=== PATIENT | female | born 1990 | race Caucasian/White ===

== ENCOUNTER 2017-04-29 18:50 | Inpatient (IN) | payer OTHER ==
[2017-04-29] MEDS ORDERED: Mag Sulf 500 ML IV SCH (19:13)
[2017-04-29 19:52] LABS: % IMMATURE GRANULYOCYTES 0.6 % (0.0-1.1); ABSOLUTE IMMATURE GRANULOCYTES 0.08 10^3/uL (0.00-0.10); ADD DIFF? NO; ADD MORPH? NO; ADD SCAN? NO; ATYPICAL LYMPHOCYTE FLAG 0 (0-99); FRAGMENT RBC FLAG 0 (0-99); HEMATOCRIT 38.2 % (38.0-47.0); HEMOGLOBIN 13.8 g/dL (12.6-16.3); LEFT SHIFT FLG 0 (0-99); LIPEMIA HEMOLYSIS FLAG 90 (0-99); MEAN CELL HEMOGLOBIN 31.2 pg (27.9-34.1); MEAN CELL HEMOGLOBIN CONCENTR. 36.1 g/dL (32.4-36.7); MEAN CELL VOLUME 86.2 fL (81.5-99.8); MEAN PLATELET VOLUME 10.6 fL (8.7-11.7); PLATELET CLUMPS FLAG 0 (0-99); PLATELET COUNT 256 10^3/uL (150-400); RED BLOOD CELL COUNT 4.43 10^6/uL (4.18-5.33); RED CELL DISTRIBUTION WIDTH 12.4 % (11.5-15.2)
[2017-04-29 20:01] LABS: ALANINE AMINOTRANSFERASE 32 IU/L (9-52); ASPARTATE AMINOTRANSFERASE 20 IU/L (14-46); BILIRUBIN,TOTAL 0.3 mg/dL (0.1-1.4); BILIRUBIN-UNCONJUGATED 0.3 mg/dL (0.0-1.1); CREATININE 0.6 mg/dL (0.6-1.0); GLOMERULAR FILTRATION RATE > 60; LACTATE DEHYDROGENASE 472 IU/L (313-618); URIC ACID 4.7 mg/dL (2.5-6.8)
[2017-04-29] MEDS ORDERED: ACETAMINOPHEN 325 MG TAB PO PRN (20:55)
--- NOTE | 2017-04-29 22:29 | PDGENHP ---
History and Physical History and Physical: Labor and Delivery History and Physical Exam DATE OF ADMISSION: 04/29/2017 HISTORY OF PRESENT ILLNESS: Heide is a 26-year-old white female G1 @ 34.3 weeks ( EDC 06/06/17 by LMP c/w 1st trimester scan) who presented this evening as a transfer from [facility] by Dr. Americo Serrano. She established OB care with Dr. Modi and has been followed by him through her . Her was uncomplicated until last week (Apr 23, 33 weeks) when she was noted to have elevated BPs at routine visit. She was admitted to hospital last week for observation, monitoring of BPs, collection of 24-hour urine protein, and administration of a course of corticosteroids. BPs decreased after Labetalol 100 mg BID PO was initiated. 24- hr urine protein was 891 mg. Patient was discharged home with close follow-up. Yesterday (Apr 28), at her follow-up clinic visit, Labetalol was discontinued. Today (Apr 29), she presented to [facility] after performing home BP monitoring and noting significantly elevated values. BPs were confirmed to be elevated at hospital (170/115). Patient denied headaches, vision changes, right-upper quadrant pain, or significant extremity swelling. She did not have significant edema or clonus on exam. HELLP labs were within normal limits. BPs were treated with IV Labetalol (20->40->80) until below severe range. Dr. Modi called on-call [employer] ([place]) and requested transfer to [facility] where NICU could accommodate delivery of 34-week , if delivery was indicated. Patient was transferred via ambulance on Magnesium sulfate 4 mg bolus / 2 mg/hr maintenance dose. labs (incomplete record available): B+ / RPR NR / HBSAg Neg / s/ p flu and Tdap vaccines. MEDICAL HISTORY: Threatened miscarriage (current , resolved), otherwise generally healthy. CURRENT MEDICATIONS: vitamins, transferred on Magnesium sulfate IV. SURGICAL HISTORY: [place] teeth extraction, right thumb tendon surgery. ALLERGIES: NKDA SOCIAL HISTORY: , lives with near [place]. Established early care FAMILY MEDICAL HISTORY: Asthma (mother), CVA (paternal grandfather), lung CA ( maternal grandmother), skin cancer (paternal grandfather). OBSTETRICAL/GYNECOLOGIC HISTORY: G1. H/o normal pap screening. EDC 06/06/17 by LMP. REVIEW OF SYSTEMS: GENERAL: Denies generalized faintness or fatigue HENT: Denies headache, vision changes, sore throat PULM: Denies cough, shortness of breath CV: Denies palpitations, chest pain GI: Denies nausea, vomiting, diarrhea, constipation : Denies dysuria, vaginal bleeding, vaginal discharge, admits to movement and painful contractions, denies gush of fluid. MSK: Denies significant swelling in extremities SKIN: Denies rash, or new lesion NEURO: Denies numbness, weakness, tingling PSYCH: Denies significant mood changes PHYSICAL EXAM: VITALS: Reviewed and stable (initial BPs 130s-140s/80s-90s) GENERAL APPEARANCE: Alert & oriented x 3 HENT: Normocephalic, atraumatic HEART: RRR, no M/R/G LUNGS: CTAB, no wheezes, no rhonchi ABDOMEN: Gravid, non-distended, non-tender, S=D PELVIC EXAM: Cervical exam: closed / thick / long / posterior Swab for GBS screen was obtained from vagina, perineum, and rectum and sent to lab. Assessment: 125 baseline heart rate, category I tracing. [place]: occasional contractions, no distinct pattern. BEDSIDE (LIMITED) SONOGRAM: Cephalic presentation, grossly normal KEVIN, good movement. ASSESSMENT: 26 yo G1 @ 34.4 weeks gestation with pre-eclampsia. PLAN: 1. Admit for observation overnight. 2. Obtain serial vital signs, serum markers, and urine protein. 3. DC magnesium sulfate and BP meds. 4. Monitor closely for evolving signs/symptoms of severe preeclampsia. 5. Alert NICU team of possible IOL. 6. Consider IOL if severe preeclampsia is diagnosed.
--- NOTE | 2017-04-29 22:50 | SOAPPROG ---
SOAP Progress Note Assessment/Plan: Assessment: 26 yo G1 @ 34.4 weeks admitted out of concern for preeclampsia. Plan: Continue to closely monitor for worsening /evolving signs and symptoms of severe preeclampsia. Headache (first onset in is this evening) will be initially treated with 650 mg PO Tylenol and it will be closely monitored. 04/29/17 22:45 Subjective: I was called to room by RN because Heide reported new onset of headache. She reported "the feeling of increased pressure between her temples." She denies vision changes, right upper quadrant pain, increased swelling. She reports good movement. Objective: Laboratory Results 04/29/17 19:34 04/29/17 19:34 Physical Exam - Physical Exam General Appearance: alert, no apparent distress EENT: PERRL/EOMI Neck: non-tender, full range of motion, supple Respiratory: lungs clear Cardiac/Chest: regular rate, rhythm Abdomen: non-tender, soft Extremities: normal range of motion, non-tender, normal inspection Neuro/Psych: alert, normal mood/affect, other (normal DTRs) ICD10 Worksheet Patient Problems: Problems Problem Status Onset Preeclampsia Acute Third trimester Acute - ICD10 Problem Qualifiers (1) Third trimester (2) Preeclampsia
[2017-04-30 06:33] LABS: % IMMATURE GRANULYOCYTES 0.4 % (0.0-1.1); ABSOLUTE IMMATURE GRANULOCYTES 0.04 10^3/uL (0.00-0.10); ADD DIFF? NO; ADD MORPH? NO; ADD SCAN? NO; ATYPICAL LYMPHOCYTE FLAG 0 (0-99); FRAGMENT RBC FLAG 0 (0-99); HEMATOCRIT 37.2 % (38.0-47.0); HEMOGLOBIN 13.1 g/dL (12.6-16.3); LEFT SHIFT FLG 0 (0-99); LIPEMIA HEMOLYSIS FLAG 90 (0-99); MEAN CELL HEMOGLOBIN CONCENTR. 35.2 g/dL (32.4-36.7); MEAN CELL VOLUME 88.2 fL (81.5-99.8); MEAN PLATELET VOLUME 10.6 fL (8.7-11.7); PLATELET CLUMPS FLAG 0 (0-99); PLATELET COUNT 226 10^3/uL (150-400); RED BLOOD CELL COUNT 4.22 10^6/uL (4.18-5.33); RED CELL DISTRIBUTION WIDTH 12.4 % (11.5-15.2)
[2017-04-30 06:48] LABS: ALANINE AMINOTRANSFERASE 29 IU/L (9-52); ASPARTATE AMINOTRANSFERASE 18 IU/L (14-46); BILIRUBIN,TOTAL 0.3 mg/dL (0.1-1.4); BILIRUBIN-CONJUGATED 0.2 mg/dL (0.0-0.5); BILIRUBIN-UNCONJUGATED 0.1 mg/dL (0.0-1.1); CREATININE 0.7 mg/dL (0.6-1.0); GLOMERULAR FILTRATION RATE > 60; LACTATE DEHYDROGENASE 367 IU/L (313-618); URIC ACID 4.7 mg/dL (2.5-6.8)
[2017-04-30] MEDS ORDERED: DOCUSATE SODIUM 100 MG CAP PO SCH ×2 (12:09→21:00)
--- NOTE | 2017-04-30 13:18 | OBPROG ---
Labor Progress Note Assessment/Plan: Assessment: 26 y/o @ 34 5/7 weeks admitted for pre-eclampsia Plan: We are observing the patient today with serial BP and labs. She is completing her repeat 24 hour urine today. I am ordering a MFM consult and Level II ultrasound tomorrow if she remains stable. If her BP worsen or she develops severe symptoms, we will proceed with IOL and MgSo4 now. 04/30/17 13:21 Subjective/Intrapartum Course: 04/30/17 13:13 Pt is feeling well today. She reports a transient low level KATHLEEN which was improved but now resolved with eating. She declines Tylenol now. She denies scotomata, RUQ or abdominal pain, has a good appetite. She feels good FM and denies contractions. Objective: 04/30/17 06:20 04/30/17 06:20 Uric Acid 4.7 mg/dL (2.5-6.8) 04/30/17 06:20 Total Bilirubin 0.3 mg/dL (0.1-1.4) 04/30/17 06:20 Conjugated Bilirubin 0.2 mg/dL (0.0-0.5) 04/30/17 06:20 Unconjugated Bilirubin 0.1 mg/dL (0.0-1.1) 04/30/17 06:20 AST 18 IU/L (14-46) 04/30/17 06:20 ALT 29 IU/L (9-52) 04/30/17 06:20 Lactate Dehydrogenase 367 IU/L (313-618) 04/30/17 06:20 129/79, 120/82, 132/80, 123/79, 120/82 - SVE Dilation (cm): 0 Effacement (%): Less than 50 Membranes: Intact - Contraction Pattern Assessment Current Contraction Pattern: Irregular - FHR Assessment Cason FHR (bpm): 140 FHR Pattern Variability: Moderate FHR Category: 1 - AP Antepartum Course: 04/30/17 13:20 transferred to [facility] @ 34 weeks secondary to elevated BP and proteinuria Oxytocin Orders Assessment - Pre-Induction/Augmentation Assessment Gestational Age: 34 week(s) and 4 day(s) ICD10 Worksheet Patient Problems: Problems Problem Status Onset Preeclampsia Acute Third trimester Acute
[2017-04-30] MEDS: DOCUSATE SODIUM 100 MG CAP PO SCH (13:21)
[2017-04-30 22:23] LABS: URINE VOLUME 4200 mL
[2017-04-30 22:35] LABS: 24 HOUR URINE PROTEIN 714 mg/24HR (42-225); RANDOM URINE PROTEIN 17 mg/dL (0-11)
[2017-05-01] MEDS: DOCUSATE SODIUM 100 MG CAP PO SCH ×3 (06:23→21:39)
[2017-05-01] MEDS ORDERED: EPSOM SALT 454 GM TP PRN (09:13)
[2017-05-01] MEDS ORDERED: LR 1,000 ML IV PRN (09:13)
[2017-05-01] MEDS ORDERED: TERBUTALINE SULFATE 1 MG/ML VIAL IV PRN (09:13)
[2017-05-01] MEDS ORDERED: OXYTOCIN 20 UNIT in LR 1,000 ML IV PRN (09:13)
[2017-05-01] MEDS ORDERED: OLIVE OIL 118 ML BTL MISC PRN (09:13)
[2017-05-01] MEDS ORDERED: MAGNESIUM SULF 4 GM/WATER 100 ML IV ONE (09:15)
[2017-05-01] MEDS ORDERED: CALCIUM GLUC 10% 1 GM/10 ML VIAL IVP PRN (09:15)
[2017-05-01] MEDS ORDERED: MAGNESIUM HYDROXIDE 30 ML UDCUP PO PRN (09:19)
[2017-05-01] MEDS ORDERED: LACTULOSE 20 GM/30 ML UDCUP PO PRN (09:19)
[2017-05-01] MEDS ORDERED: POLYETHYLENE GLYCOL 3350 17 GM PKT PO PRN (09:19)
[2017-05-01] MEDS ORDERED: BISACODYL 10 MG SUPP PR PRN (09:19)
[2017-05-01] MEDS ORDERED: ONDANSETRON 4 MG/2 ML VIAL IVP PRN (09:21)
--- NOTE | 2017-05-01 09:36 | OBPROG ---
Labor Progress Note Assessment/Plan: Assessment: 26 y/o @ 34 6/7 weeks with severe preeclampsia Plan: Spoke with M, Dr. Kaur, who recommends delivery secondary to severe preeclampsia Will proceed with IOL at this time Pt has unfavorable cervix being closed and thick, will start with cervical ripening with Cytotec 100 mcg PO Will start Mag with bolus and then 2 gm maintenance Strict I and O's SCDs Bowel protocol IV Labetalol for BPs greater than 165/105, cont to closely monitor Will check PIH labs q 12 hrs Most recent 24 hr urine protein 714mg, previously 891 mg on 04/23 FHTs - Cat I, will cont to monitor Bedside u/s confirms cephalic presentation 05/01/17 09:46 Subjective/Intrapartum Course: 04/30/17 13:13 Pt is feeling well today. She reports a transient low level KATHLEEN which was improved but now resolved with eating. She declines Tylenol now. She denies scotomata, RUQ or abdominal pain, has a good appetite. She feels good FM and denies contractions. 05/01/17 09:36 Pt seen and examined. She states a mild KATHLEEN since she has been here. Declines Tylenol at this time. She denies any visual changes, or any RUQ/epigastric pain. States good FM. No LOF or VB. Denies any ctx's or cramping. Dora breakfast. Had BM-small yesterday. Objective: 04/30/17 06:20 04/30/17 06:20 Uric Acid 4.7 mg/dL (2.5-6.8) 04/30/17 06:20 Total Bilirubin 0.3 mg/dL (0.1-1.4) 04/30/17 06:20 Conjugated Bilirubin 0.2 mg/dL (0.0-0.5) 04/30/17 06:20 Unconjugated Bilirubin 0.1 mg/dL (0.0-1.1) 04/30/17 06:20 AST 18 IU/L (14-46) 04/30/17 06:20 ALT 29 IU/L (9-52) 04/30/17 06:20 Lactate Dehydrogenase 367 IU/L (313-618) 04/30/17 06:20 Group B Strep DNA NEGATIVE (NEGATIVE) 04/29/17 21:15 24 hr urine protein: 10/18 891 mg 04/30 714 mg - SVE Dilation (cm): 0 Effacement (%): 0 Station: -3 Membranes: Intact - Contraction Pattern Assessment Current Contraction Pattern: Irregular - FHR Assessment Cason FHR (bpm): 140 FHR Pattern Variability: Moderate FHR Category: 1 - AP Antepartum Course: 04/30/17 13:20 transferred to [facility] @ 34 weeks secondary to elevated BP and proteinuria - Physical Exam General Appearance: WD/WN, alert, no apparent distress Abdomen: non-tender, soft, other (gravid) Extremities: non-tender, swelling (mild) DTR- Lower Extremities: Plantar (R): 1+, Plantar (L): 1+ Neuro/Psych: alert, normal mood/affect, oriented x 3 Oxytocin Orders Assessment - Pre-Induction/Augmentation Assessment Gestational Age: 34 week(s) and 4 day(s) ICD10 Worksheet Patient Problems: Problems Problem Status Onset Preeclampsia Acute Third trimester Acute
[2017-05-01] MEDS ORDERED: LABETALOL HCL 50 MG/10 ML SYR IVP PRN (09:47)
[2017-05-01 09:56] LABS: % IMMATURE GRANULYOCYTES 0.4 % (0.0-1.1); ABSOLUTE IMMATURE GRANULOCYTES 0.04 10^3/uL (0.00-0.10); ADD DIFF? NO; ADD MORPH? NO; ADD SCAN? NO; ATYPICAL LYMPHOCYTE FLAG 0 (0-99); FRAGMENT RBC FLAG 10 (0-99); HEMATOCRIT 40.9 % (38.0-47.0); HEMOGLOBIN 14.1 g/dL (12.6-16.3); LEFT SHIFT FLG 0 (0-99); LIPEMIA HEMOLYSIS FLAG 90 (0-99); MEAN CELL HEMOGLOBIN 30.2 pg (27.9-34.1); MEAN CELL HEMOGLOBIN CONCENTR. 34.5 g/dL (32.4-36.7); MEAN CELL VOLUME 87.6 fL (81.5-99.8); MEAN PLATELET VOLUME 10.8 fL (8.7-11.7); PLATELET CLUMPS FLAG 0 (0-99); PLATELET COUNT 238 10^3/uL (150-400); RED BLOOD CELL COUNT 4.67 10^6/uL (4.18-5.33); RED CELL DISTRIBUTION WIDTH 12.5 % (11.5-15.2)
[2017-05-01] MEDS: PRENATAL VIT 1 EACH TAB PO SCH (09:58)
[2017-05-01 10:23] LABS: ALANINE AMINOTRANSFERASE 28 IU/L (9-52); ASPARTATE AMINOTRANSFERASE 19 IU/L (14-46); BILIRUBIN,TOTAL 0.3 mg/dL (0.1-1.4); BILIRUBIN-UNCONJUGATED 0.3 mg/dL (0.0-1.1); CREATININE 0.7 mg/dL (0.6-1.0); GLOMERULAR FILTRATION RATE > 60; LACTATE DEHYDROGENASE 447 IU/L (313-618); URIC ACID 5.1 mg/dL (2.5-6.8)
[2017-05-01] MEDS: MISOPROSTOL 100 MCG TAB PO SCH ×3 (10:23→18:25)
[2017-05-01] MEDS: Mag Sulf 500 ML IV SCH ×2 (10:43→19:44)
--- NOTE | 2017-05-01 13:45 | OBPROG ---
Labor Progress Note Assessment/Plan: Assessment: 26 y/o @ 34 6/7 weeks with severe preeclampsia Plan: Currently on Mag - feeling better after popsicle FHTs - Category I tracing BPs labile, cont to closely monitor Pt is asymptomatic at this time s/p Cytotec x 1; second dose due at 1430 05/01/17 13:39 Subjective/Intrapartum Course: 04/30/17 13:13 Pt is feeling well today. She reports a transient low level KATHLEEN which was improved but now resolved with eating. She declines Tylenol now. She denies scotomata, RUQ or abdominal pain, has a good appetite. She feels good FM and denies contractions. 05/01/17 09:36 Pt seen and examined. She states a mild KATHLEEN since she has been here. Declines Tylenol at this time. She denies any visual changes, or any RUQ/epigastric pain. States good FM. No LOF or VB. Denies any ctx's or cramping. Dora breakfast. Had BM-small yesterday. 05/01/17 13:45 Pt feels much better after having a popsicle, now on mag. Denies any HAs, visual changes or RUQ pain. Good FM. Starting to feel achy with Cytotec. Objective: 05/01/17 09:35 05/01/17 09:35 Patient ABO/Rh B POSITIVE 05/01/17 09:35 Uric Acid 5.1 mg/dL (2.5-6.8) 05/01/17 09:35 Total Bilirubin 0.3 mg/dL (0.1-1.4) 05/01/17 09:35 Conjugated Bilirubin 0.0 mg/dL (0.0-0.5) 05/01/17 09:35 Unconjugated Bilirubin 0.3 mg/dL (0.0-1.1) 05/01/17 09:35 AST 19 IU/L (14-46) 05/01/17 09:35 ALT 28 IU/L (9-52) 05/01/17 09:35 Lactate Dehydrogenase 447 IU/L (313-618) 05/01/17 09:35 Group B Strep DNA NEGATIVE (NEGATIVE) 04/29/17 21:15 - SVE Membranes: Intact - Contraction Pattern Assessment Current Contraction Pattern: Irregular - AP Antepartum Course: 04/30/17 13:[address] [facility] @ 34 weeks secondary to elevated BP and proteinuria - Physical Exam General Appearance: WD/WN, alert, no apparent distress Respiratory: lungs clear, normal breath sounds Cardiac/Chest: regular rate, rhythm Abdomen: non-tender, soft, other (gravid) Extremities: non-tender, swelling (mild) DTR- Lower Extremities: Plantar (R): 1+, Plantar (L): 1+ Neuro/Psych: alert, normal mood/affect, oriented x 3 Oxytocin Orders Assessment - Pre-Induction/Augmentation Assessment Gestational Age: 34 week(s) and 4 day(s) ICD10 Worksheet Patient Problems: Problems Problem Status Onset Preeclampsia Acute Third trimester Acute
[2017-05-01] MEDS ORDERED: AMMONIA AROMATIC 1 EACH AMP IH ONE (15:32)
[2017-05-01] MEDS ORDERED: LIDOCAINE 1% 300 MG/30 ML SDV ONE (15:32)
[2017-05-01] MEDS ORDERED: OLIVE OIL 118 ML BTL ONE (15:32)
[2017-05-01] MEDS ORDERED: OXYTOCIN 10 UNIT/ML VIAL ONE (15:33)
[2017-05-01] MEDS ORDERED: MISOPROSTOL 200 MCG TAB ONE (15:33)
[2017-05-01] MEDS ORDERED: TERBUTALINE SULFATE 1 MG/ML VIAL ONE (15:33)
--- NOTE | 2017-05-01 16:36 | OBPROG ---
Labor Progress Note Assessment/Plan: Assessment: 26 y/o @ 34 6/7 weeks with severe preeclampsia Plan: Currently on Mag - patient is sleeping FHTs - Category I tracing BPs 120-150/70-90's, cont to closely monitor; Labetalol IV prn s/p Cytotec x 2; third dose due at 1830 05/01/17 16:33 Subjective/Intrapartum Course: 04/30/17 13:13 Pt is feeling well today. She reports a transient low level KATHLEEN which was improved but now resolved with eating. She declines Tylenol now. She denies scotomata, RUQ or abdominal pain, has a good appetite. She feels good FM and denies contractions. 05/01/17 09:36 Pt seen and examined. She states a mild KATHLEEN since she has been here. Declines Tylenol at this time. She denies any visual changes, or any RUQ/epigastric pain. States good FM. No LOF or VB. Denies any ctx's or cramping. Dora breakfast. Had BM-small yesterday. 05/01/17 13:45 Pt feels much better after having a popsicle, now on mag. Denies any HAs, visual changes or RUQ pain. Good FM. Starting to feel achy with Cytotec. 05/01/17 16:35 Pt is sleeping at this time. Objective: 05/01/17 09:35 05/01/17 09:35 Patient ABO/Rh B POSITIVE 05/01/17 09:35 Uric Acid 5.1 mg/dL (2.5-6.8) 05/01/17 09:35 Total Bilirubin 0.3 mg/dL (0.1-1.4) 05/01/17 09:35 Conjugated Bilirubin 0.0 mg/dL (0.0-0.5) 05/01/17 09:35 Unconjugated Bilirubin 0.3 mg/dL (0.0-1.1) 05/01/17 09:35 AST 19 IU/L (14-46) 05/01/17 09:35 ALT 28 IU/L (9-52) 05/01/17 09:35 Lactate Dehydrogenase 447 IU/L (313-618) 05/01/17 09:35 Group B Strep DNA NEGATIVE (NEGATIVE) 04/29/17 21:15 - SVE Membranes: Intact - Contraction Pattern Assessment Current Contraction Pattern: Other (Specify) (no ctx's) - FHR Assessment Cason FHR (bpm): 140 FHR Pattern Variability: Moderate FHR Category: 1 - AP Antepartum Course: 04/30/17 13:20 transferred to [facility] @ 34 weeks secondary to elevated BP and proteinuria Oxytocin Orders Assessment - Pre-Induction/Augmentation Assessment Gestational Age: 34 week(s) and 4 day(s) ICD10 Worksheet Patient Problems: Problems Problem Status Onset Preeclampsia Acute Third trimester Acute
--- NOTE | 2017-05-01 22:15 | OBPROG ---
Labor Progress Note Assessment/Plan: Assessment: 26 y/o @ 34 6/7 weeks with severe preeclampsia Plan: Currently on Mag FHTs - Category I tracing BPs 120-150/80's; will cont to monitor closely Pt is asymptomatic at this time s/p Cytotec x 3 orally Tan bulb placed with some difficulty and inflated with 30 cc NS Pt tiffanie well Tylenol prn back pain Ambien prn sleep Diuresing well 05/01/17 22:22 Subjective/Intrapartum Course: 04/30/17 13:13 Pt is feeling well today. She reports a transient low level KATHLEEN which was improved but now resolved with eating. She declines Tylenol now. She denies scotomata, RUQ or abdominal pain, has a good appetite. She feels good FM and denies contractions. 05/01/17 09:36 Pt seen and examined. She states a mild KATHLEEN since she has been here. Declines Tylenol at this time. She denies any visual changes, or any RUQ/epigastric pain. States good FM. No LOF or VB. Denies any ctx's or cramping. Tiffanie breakfast. Had BM-small yesterday. 05/01/17 13:45 Pt feels much better after having a popsicle, now on mag. Denies any HAs, visual changes or RUQ pain. Good FM. Starting to feel achy with Cytotec. 05/01/17 16:35 Pt is sleeping at this time. 05/01/17 22:17 Pt feels crampy, trying to have a BM. Denies any PIH symptoms. Good FM. Denies any LOF or VB. Objective: 05/01/17 09:35 05/01/17 09:35 Patient ABO/Rh B POSITIVE 05/01/17 09:35 Uric Acid 5.1 mg/dL (2.5-6.8) 05/01/17 09:35 Total Bilirubin 0.3 mg/dL (0.1-1.4) 05/01/17 09:35 Conjugated Bilirubin 0.0 mg/dL (0.0-0.5) 05/01/17 09:35 Unconjugated Bilirubin 0.3 mg/dL (0.0-1.1) 05/01/17 09:35 AST 19 IU/L (14-46) 05/01/17 09:35 ALT 28 IU/L (9-52) 05/01/17 09:35 Lactate Dehydrogenase 447 IU/L (313-618) 05/01/17 09:35 Group B Strep DNA NEGATIVE (NEGATIVE) 04/29/17 21:15 - SVE Dilation (cm): 1 (FT) Effacement (%): Less than 50 Station: -3 Membranes: Intact - Contraction Pattern Assessment Current Contraction Pattern: Irregular, Other (Specify) (no ctx's) - FHR Assessment Cason FHR (bpm): 135 FHR Pattern Variability: Moderate FHR Category: 1 - Procedures Non-surgical Procedures: Other (Specify) (Tan bulb) - AP Antepartum Course: 04/30/17 13:20 transferred to [facility] @ 34 weeks secondary to elevated BP and proteinuria - Physical Exam General Appearance: WD/WN, alert, no apparent distress Respiratory: lungs clear, normal breath sounds Cardiac/Chest: regular rate, rhythm Abdomen: non-tender, soft, other (gravid) Extremities: non-tender, normal inspection, swelling (mild), other (+SCDs) DTR- Lower Extremities: Plantar (R): 1+, Plantar (L): 1+ Skin: normal color, warm/dry Neuro/Psych: alert, normal mood/affect, oriented x 3 Oxytocin Orders Assessment - Pre-Induction/Augmentation Assessment Gestational Age: 34 week(s) and 4 day(s) ICD10 Worksheet Patient Problems: Problems Problem Status Onset Preeclampsia Acute Third trimester Acute
[2017-05-01] MEDS ORDERED: ACETAMINOPHEN 500 MG TAB PO PRN (22:22)
[2017-05-01] MEDS ORDERED: ZOLPIDEM TARTRATE 5 MG TAB PO PRN (22:23)
[2017-05-01 22:56] LABS: % IMMATURE GRANULYOCYTES 0.5 % (0.0-1.1); ABSOLUTE IMMATURE GRANULOCYTES 0.08 10^3/uL (0.00-0.10); ADD DIFF? NO; ADD MORPH? NO; ADD SCAN? NO; ATYPICAL LYMPHOCYTE FLAG 0 (0-99); FRAGMENT RBC FLAG 0 (0-99); HEMATOCRIT 43.5 % (38.0-47.0); LEFT SHIFT FLG 0 (0-99); LIPEMIA HEMOLYSIS FLAG 90 (0-99); MEAN CELL HEMOGLOBIN CONCENTR. 34.5 g/dL (32.4-36.7); MEAN PLATELET VOLUME 10.7 fL (8.7-11.7); PLATELET CLUMPS FLAG 0 (0-99); PLATELET COUNT 260 10^3/uL (150-400); RED CELL DISTRIBUTION WIDTH 12.2 % (11.5-15.2)
[2017-05-01 23:09] LABS: ALANINE AMINOTRANSFERASE 32 IU/L (9-52); ASPARTATE AMINOTRANSFERASE 21 IU/L (14-46); BILIRUBIN,TOTAL 0.4 mg/dL (0.1-1.4); BILIRUBIN-CONJUGATED 0.2 mg/dL (0.0-0.5); BILIRUBIN-UNCONJUGATED 0.2 mg/dL (0.0-1.1); CREATININE 0.7 mg/dL (0.6-1.0); GLOMERULAR FILTRATION RATE > 60; LACTATE DEHYDROGENASE 543 IU/L (313-618); URIC ACID 5.1 mg/dL (2.5-6.8)
[2017-05-01] MEDS ORDERED: LR 500 ML IV PRN (23:32)
[2017-05-01] MEDS ORDERED: OXYTOCIN 30 UNITS in LR 500 ML IV SCH (23:45)
[2017-05-02] MEDS: Mag Sulf 500 ML IV SCH (06:49)
[2017-05-02 09:16] LABS: % IMMATURE GRANULYOCYTES 0.5 % (0.0-1.1); ABSOLUTE IMMATURE GRANULOCYTES 0.06 10^3/uL (0.00-0.10); ADD DIFF? NO; ADD MORPH? NO; ADD SCAN? NO; ATYPICAL LYMPHOCYTE FLAG 0 (0-99); FRAGMENT RBC FLAG 0 (0-99); HEMATOCRIT 45.9 % (38.0-47.0); HEMOGLOBIN 16.1 g/dL (12.6-16.3); LEFT SHIFT FLG 0 (0-99); LIPEMIA HEMOLYSIS FLAG 90 (0-99); MEAN CELL HEMOGLOBIN 30.4 pg (27.9-34.1); MEAN CELL HEMOGLOBIN CONCENTR. 35.1 g/dL (32.4-36.7); MEAN CELL VOLUME 86.8 fL (81.5-99.8); MEAN PLATELET VOLUME 10.5 fL (8.7-11.7); PLATELET CLUMPS FLAG 0 (0-99); PLATELET COUNT 254 10^3/uL (150-400); RED BLOOD CELL COUNT 5.29 10^6/uL (4.18-5.33); RED CELL DISTRIBUTION WIDTH 12.3 % (11.5-15.2)
--- NOTE | 2017-05-02 09:39 | OBPROG ---
Labor Progress Note Assessment/Plan: Assessment: Plan: Subjective/Intrapartum Course: 04/30/17 13:13 Pt is feeling well today. She reports a transient low level KATHLEEN which was improved but now resolved with eating. She declines Tylenol now. She denies scotomata, RUQ or abdominal pain, has a good appetite. She feels good FM and denies contractions. 05/01/17 09:36 Pt seen and examined. She states a mild KATHLEEN since she has been here. Declines Tylenol at this time. She denies any visual changes, or any RUQ/epigastric pain. States good FM. No LOF or VB. Denies any ctx's or cramping. Dora breakfast. Had BM-small yesterday. 05/01/17 13:45 Pt feels much better after having a popsicle, now on mag. Denies any HAs, visual changes or RUQ pain. Good FM. Starting to feel achy with Cytotec. 05/01/17 16:35 Pt is sleeping at this time. 05/01/17 22:17 Pt feels crampy, trying to have a BM. Denies any PIH symptoms. Good FM. Denies any LOF or VB. 05/02/17 09:38 patient more uncomfortable. was able to rest overnight. coughed and the alvarez bulb came out. started leaking clear fluid. large amount of clear fluid came out with exam. blood pressures are elevated but stable. status is reassuring. requesting epidural. pitocin is at 8 mu Objective: 05/02/17 09:08 Patient ABO/Rh B POSITIVE 05/01/17 09:35 Uric Acid 5.1 mg/dL (2.5-6.8) 05/01/17 22:33 Total Bilirubin 0.4 mg/dL (0.1-1.4) 05/01/17 22:33 Conjugated Bilirubin 0.2 mg/dL (0.0-0.5) 05/01/17 22:33 Unconjugated Bilirubin 0.2 mg/dL (0.0-1.1) 05/01/17 22:33 AST 21 IU/L (14-46) 05/01/17 22:33 ALT 32 IU/L (9-52) 05/01/17 22:33 Lactate Dehydrogenase 543 IU/L (313-618) 05/01/17 22:33 Group B Strep DNA NEGATIVE (NEGATIVE) 04/29/17 21:15 - SVE Dilation (cm): 4 Effacement (%): 80 Station: -1 Membranes: SROM Amniotic Fluid Color: Clear - Contraction Pattern Assessment Current Contraction Pattern: Irregular, Other (Specify) (no ctx's) - Procedures Non-surgical Procedures: Other (Specify) (Alvarez bulb) - AP Antepartum Course: 04/30/17 13:20 transferred to [facility] @ 34 weeks secondary to elevated BP and proteinuria Oxytocin Orders Assessment - Pre-Induction/Augmentation Assessment Gestational Age: 34 week(s) and 4 day(s) ICD10 Worksheet Patient Problems: Problems Problem Status Onset Preeclampsia Acute Third trimester Acute
[2017-05-02 09:51] LABS: ALANINE AMINOTRANSFERASE 35 IU/L (9-52); ASPARTATE AMINOTRANSFERASE 26 IU/L (14-46); CREATININE 0.8 mg/dL (0.6-1.0); GLOMERULAR FILTRATION RATE > 60; LACTATE DEHYDROGENASE 633 IU/L (313-618); URIC ACID 5.7 mg/dL (2.5-6.8)
[2017-05-02] MEDS ORDERED: fentaNYL 2MCG/ML/BUP 0.1% RTU 100 ML BAG EP ONE (10:26)
[2017-05-02] MEDS ORDERED: PHENYLEPHRINE HCL 100 MCG/ML SYR ONE (10:27)
[2017-05-02] MEDS ORDERED: BUPIVACAINE 0.25% 30 ML SDV ONE (10:27)
[2017-05-02] MEDS ORDERED: fentaNYL 100 MCG/2 ML INJ ONE (10:28)
--- NOTE | 2017-05-02 12:43 | OBPROG ---
Labor Progress Note Assessment/Plan: Assessment: Plan: Subjective/Intrapartum Course: 04/30/17 13:13 Pt is feeling well today. She reports a transient low level KATHLEEN which was improved but now resolved with eating. She declines Tylenol now. She denies scotomata, RUQ or abdominal pain, has a good appetite. She feels good FM and denies contractions. 05/01/17 09:36 Pt seen and examined. She states a mild KATHLEEN since she has been here. Declines Tylenol at this time. She denies any visual changes, or any RUQ/epigastric pain. States good FM. No LOF or VB. Denies any ctx's or cramping. Dora breakfast. Had BM-small yesterday. 05/01/17 13:45 Pt feels much better after having a popsicle, now on mag. Denies any HAs, visual changes or RUQ pain. Good FM. Starting to feel achy with Cytotec. 05/01/17 16:35 Pt is sleeping at this time. 05/01/17 22:17 Pt feels crampy, trying to have a BM. Denies any PIH symptoms. Good FM. Denies any LOF or VB. 05/02/17 09:38 patient more uncomfortable. was able to rest overnight. coughed and the alvarez bulb came out. started leaking clear fluid. large amount of clear fluid came out with exam. blood pressures are elevated but stable. status is reassuring. requesting epidural. pitocin is at 8 mu 05/02/17 12:42 patient comfortable with epidural. occasional variables and earlies on monitoring. sve 9/80/0. will continue to monitor closely. Objective: 05/02/17 09:08 05/02/17 09:08 Patient ABO/Rh B POSITIVE 05/01/17 09:35 Uric Acid 5.7 mg/dL (2.5-6.8) 05/02/17 09:08 Total Bilirubin 0.4 mg/dL (0.1-1.4) 05/01/17 22:33 Conjugated Bilirubin 0.2 mg/dL (0.0-0.5) 05/01/17 22:33 Unconjugated Bilirubin 0.2 mg/dL (0.0-1.1) 05/01/17 22:33 AST 26 IU/L (14-46) 05/02/17 09:08 ALT 35 IU/L (9-52) 05/02/17 09:08 Lactate Dehydrogenase 633 IU/L (313-618) H 05/02/17 09:08 Group B Strep DNA NEGATIVE (NEGATIVE) 04/29/17 21:15 - SVE Dilation (cm): 9 Effacement (%): 90 Station: 0 Membranes: SROM Amniotic Fluid Color: Clear - Contraction Pattern Assessment Current Contraction Pattern: Regular - Procedures Non-surgical Procedures: Other (Specify) (Alvarez bulb) - AP Antepartum Course: 04/30/17 13:20 transferred to [facility] @ 34 weeks secondary to elevated BP and proteinuria Oxytocin Orders Assessment - Pre-Induction/Augmentation Assessment Gestational Age: 34 week(s) and 4 day(s) ICD10 Worksheet Patient Problems: Problems Problem Status Onset Preeclampsia Acute Third trimester Acute
--- NOTE | 2017-05-02 12:47 | PREANESOB ---
Obstetric Pre-Anesthesia Info - General Info Proposed Procedure: Labor and delivery with pitocin and magnesium. : 1 Para: 0 KINJAL: 06/06/17 Gestational Age: 34 week(s) and 4 day(s) - Info Status: Premature Monitors: External FHR Baseline (bpm): 140 FHR Pattern: Reassuring - Labor Status Cervical Dilation per last OB SVE: 4, 9 Station per last OB SVE: -1 Amniotic Fluid Color: Clear Pitocin: In Use PIH: Moderate Magnesium Sulfate in Use: Yes Indications for Labor Analgesia: Induction of Labor, Pain Control Labor Epidural: Proposed Anesthesia ROS: Oral surgery and general anesthesia for hand surgery. Allergies/Adverse Reactions: Allergy/AdvReac Type Severity Reaction Status Date / Time No Known Allergies Allergy Unverified 04/30/17 06:56 Visit Medications: Generic Name Dose Route Start Last Admin Trade Name Freq PRN Reason Stop Dose Admin Acetaminophen 1,000 mg 05/01/17 22:22 05/01/17 22:29 Tylenol PO 10/28/17 22:21 1,000 mg Q6HRS PRN Administration Pain, Mild/Fever, Can Take PO Bisacodyl 10 mg 05/01/17 09:19 Dulcolax Rectal PA 10/28/17 09:18 DAILY PRN Constipation Protocol Calcium Gluconate 1 gm 05/01/17 09:15 Calcium Gluconate IVP 10/28/17 09:14 PRN PRN Magnesium Toxicity Docusate Sodium 100 mg 04/30/17 12:15 05/01/17 21:39 Colace PO 10/27/17 12:14 100 mg BID LEAH Administration Lactated Ringer's 1,000 mls @ 0 mls/hr 05/01/17 09:13 05/01/17 10:03 Lr IV 10/28/17 09:12 1,000 mls PRN PRN Administration SEE PROTOCOL CONDITIONS Protocol Per Protocol Magnesium Sulfate 500 mls @ 50 mls/hr 05/01/17 09:15 05/02/17 06:49 Magnesium Sulfate 20 Gm/ 500 Ml (Premix) IV 10/28/17 09:14 500 mls CONT LEAH Administration Oxytocin 20 unit/ Lactated 1,002 mls @ 150 mls/hr 05/01/17 09:13 Ringer's IV PRN PRN Post- bleeding Lactated Ringer's 500 mls @ 500 mls/hr 05/01/17 23:32 Lr IV PRN PRN Maternal Hypotension Oxytocin 30 units/ Lactated 503 mls @ 0 mls/hr 05/01/17 23:45 05/02/17 06:09 Ringer's IV 10/28/17 23:44 503 mls CONT LEAH Administration Protocol Per Protocol Ibuprofen 600 mg 05/01/17 09:13 Motrin PO 10/28/17 09:12 Q6HRS PRN post , inflammation Labetalol HCl 20 mg 05/01/17 09:47 Labetalol Hcl IVP 05/04/17 09:46 ONCE PRN BPs greater than 165/105 Lactulose 20 gm 05/01/17 09:19 Cephulac PO 10/28/17 09:18 TID PRN Constipation Protocol Magnesium Hydroxide 30 ml 05/01/17 09:19 Milk Of Magnesia PO 10/28/17 09:18 DAILY PRN Constipation Protocol Magnesium Sulfate 454 gm 05/01/17 09:13 Epsom Salt TP 10/28/17 09:12 Q1H PRN perineal discomfort [place] Oil 118 ml 05/01/17 09:13 Sweet Oil MISC 10/28/17 09:12 ONCE PRN perineal massage Ondansetron HCl 4 mg 05/01/17 09:21 05/01/17 16:45 Zofran IVP 10/28/17 09:20 4 mg Q4HRS PRN Administration Nausea/Vomiting, Can't Take PO Polyethylene Glycol 17 gm 05/01/17 09:19 Miralax PO 10/28/17 09:18 DAILY PRN Constipation, patient prefers Protocol Prenat Multivit/[place]/Iron/Folic Ac 1 each 05/01/17 08:00 05/01/17 09:58 PO 10/28/17 07:59 1 each DAILY@0800 LEAH Administration Terbutaline Sulfate 0.25 mg 05/01/17 09:13 Brethine IV 10/28/17 09:12 ONCE PRN Tachysystole Zolpidem Tartrate 5 mg 05/01/17 22:23 05/01/17 22:30 Ambien PO 10/28/17 22:22 5 mg HS PRN Administration Sleep/Insomnia Discontinued Medications Generic Name Dose Route Start Last Admin Trade Name Freq PRN Reason Stop Dose Admin Acetaminophen 650 mg 10/24/17 20:55 04/29/17 22:40 Tylenol PO 10/26/17 20:54 650 mg Q4HRS PRN Administration Pain, Mild/Fever, Can Take PO Ammonia (Aromatic Spirit) Confirm 05/01/17 15:32 Ammonia Aromatic Administered 05/01/17 15:33 Dose 1 each IH .STK-MED ONE Bupivacaine HCl Confirm 05/02/17 10:27 Sensorcaine 0.25% Sdv Administered 05/02/17 10:28 Dose 30 ml .ROUTE .STK-MED ONE Docusate Sodium 100 mg 04/30/17 21:00 Colace PO 10/27/17 20:59 BID LEAH Docusate Sodium 100 mg 04/30/17 12:09 Colace PO 10/27/17 12:08 BID LEAH Ephedrine Sulfate Confirm 05/01/17 15:32 Ephedrine Sulfate Administered 05/01/17 15:33 Dose 50 mg .ROUTE .STK-MED ONE Fentanyl Confirm 05/02/17 10:28 Sublimaze Administered 05/02/17 10:29 Dose 100 mcg .ROUTE .STK-MED ONE Fentanyl/Bupivacaine HCl Confirm 05/02/17 10:26 Fentanyl/Bupivacaine/Ns 2 Mcg/Ml 0.1% (Premix Administered 05/02/17 10:27 Dose 100 ml EP .STK-MED ONE Magnesium Sulfate 500 mls @ 50 mls/hr 04/29/17 19:13 Magnesium Sulfate 20 Gm/ 500 Ml (Premix) IV 10/26/17 19:12 CONT LEAH As Directed Magnesium Sulfate 100 mls @ 200 mls/hr 05/01/17 09:15 05/01/17 10:03 Magnesium Sulf 4 Gm (Premix) IV 05/01/17 09:44 100 mls ONCE ONE Administration Lidocaine HCl Confirm 05/01/17 15:32 Lidocaine Hcl 1% Administered 05/01/17 15:33 Dose 300 mg .ROUTE .STK-MED ONE Misoprostol 100 mcg 05/01/17 09:30 05/01/17 18:25 Cytotec PO 05/01/17 21:31 100 mcg Q4H LEAH Administration Misoprostol Confirm 05/01/17 15:33 Cytotec Administered 05/01/17 15:34 Dose 1,000 mcg .ROUTE .STK-MED ONE [place] Oil Confirm 05/01/17 15:32 Sweet Oil Administered 05/01/17 15:33 Dose 118 ml .ROUTE .STK-MED ONE Oxytocin Confirm 05/01/17 15:33 Pitocin Administered 05/01/17 15:34 Dose 40 unit .ROUTE .STK-MED ONE Phenylephrine HCl Confirm 05/02/17 10:27 Neosynephrine Administered 05/02/17 10:28 Dose 1,000 mcg .ROUTE .STK-MED ONE Terbutaline Sulfate Confirm 05/01/17 15:33 Brethine Administered 05/01/17 15:34 Dose 1 mg .ROUTE .STK-MED ONE - Anesthesia History Response to Local Anesthetics: Normal Anesthesia & Operative History: No Prior Problems Family Anesthesia History: Negative - Social History Substance Use/Abuse: Denies - Vital Signs Blood Pressure: 140/89 Heart Rate: 95 Respiratory Rate: 14 Height/Weight (Nursing): Height 165.1 cm Weight 80.286 kg - Focused Exam Neck exam: FROM Mallampati Score: Class 1 Pulmonary: no respiratory distress Cardiovascular: regular rate and rhythym Labs: 05/02/17 09:08 05/02/17 09:08 Patient ABO/Rh B POSITIVE 05/01/17 09:35 Uric Acid 5.7 mg/dL (2.5-6.8) 05/02/17 09:08 Total Bilirubin 0.4 mg/dL (0.1-1.4) 05/01/17 22:33 Conjugated Bilirubin 0.2 mg/dL (0.0-0.5) 05/01/17 22:33 Unconjugated Bilirubin 0.2 mg/dL (0.0-1.1) 05/01/17 22:33 AST 26 IU/L (14-46) 05/02/17 09:08 ALT 35 IU/L (9-52) 05/02/17 09:08 Lactate Dehydrogenase 633 IU/L (313-618) H 05/02/17 09:08 Group B Strep DNA NEGATIVE (NEGATIVE) 04/29/17 21:15 - Plan Anesthetic Plan: CSE Consent Signed and on Chart: Yes Patient/Guardian Understands and Agrees to Plan: Yes Urgent/Emergent Case: Anesheila eval completed preop but documented later for safe timely pt care General Comments: ASA 2
[2017-05-02] MEDS ORDERED: PHENYLEPHRINE HCL 100 MCG/ML SYR IVP PRN (13:01)
--- NOTE | 2017-05-02 13:01 | POSTANESTH ---
Post Anesthetic Evaluation Cardiovascular Status: Normal, Stable Respiratory Status: Normal, Stable Level of Consciousness/Mental Status: Can Participate in Eval Pain Control: Adequate, Prn Tx Ordered Nausea/Vomiting Control: Adequate, Prn Tx Ordered Complications Possibly Related to Anesthesia: None Noted
[2017-05-02] MEDS ORDERED: fentaNYL 2MCG/ML/BUP 0.1% RTU 100 ML EP SCH (13:30)
[2017-05-02] MEDS ORDERED: LR 500 ML IV SCH (13:30)
--- NOTE | 2017-05-02 13:46 | OBPROG ---
Labor Progress Note Assessment/Plan: Assessment: Plan: Subjective/Intrapartum Course: 04/30/17 13:13 Pt is feeling well today. She reports a transient low level KATHLEEN which was improved but now resolved with eating. She declines Tylenol now. She denies scotomata, RUQ or abdominal pain, has a good appetite. She feels good FM and denies contractions. 05/01/17 09:36 Pt seen and examined. She states a mild KATHLEEN since she has been here. Declines Tylenol at this time. She denies any visual changes, or any RUQ/epigastric pain. States good FM. No LOF or VB. Denies any ctx's or cramping. Dora breakfast. Had BM-small yesterday. 05/01/17 13:45 Pt feels much better after having a popsicle, now on mag. Denies any HAs, visual changes or RUQ pain. Good FM. Starting to feel achy with Cytotec. 05/01/17 16:35 Pt is sleeping at this time. 05/01/17 22:17 Pt feels crampy, trying to have a BM. Denies any PIH symptoms. Good FM. Denies any LOF or VB. 05/02/17 09:38 patient more uncomfortable. was able to rest overnight. coughed and the alvarez bulb came out. started leaking clear fluid. large amount of clear fluid came out with exam. blood pressures are elevated but stable. status is reassuring. requesting epidural. pitocin is at 8 mu 05/02/17 12:42 patient comfortable with epidural. occasional variables and earlies on monitoring. sve 9/80/0. will continue to monitor closely. 05/02/17 13:41 patient feeling pressure. had deceleration yo 70's/ SVE patient complete - 0 station. began pushing. having some variable decels. overall status is reassuring. Objective: 05/02/17 09:08 05/02/17 09:08 Patient ABO/Rh B POSITIVE 05/01/17 09:35 Uric Acid 5.7 mg/dL (2.5-6.8) 05/02/17 09:08 Total Bilirubin 0.4 mg/dL (0.1-1.4) 05/01/17 22:33 Conjugated Bilirubin 0.2 mg/dL (0.0-0.5) 05/01/17 22:33 Unconjugated Bilirubin 0.2 mg/dL (0.0-1.1) 05/01/17 22:33 AST 26 IU/L (14-46) 05/02/17 09:08 ALT 35 IU/L (9-52) 05/02/17 09:08 Lactate Dehydrogenase 633 IU/L (313-618) H 05/02/17 09:08 Group B Strep DNA NEGATIVE (NEGATIVE) 04/29/17 21:15 Temp Pulse Resp BP Pulse Ox 95 14 140/89 H 05/02/17 13:00 05/02/17 13:00 05/02/17 13:00 - SVE Dilation (cm): 10 Effacement (%): 100 Station: 0 Membranes: SROM Amniotic Fluid Color: Clear - Contraction Pattern Assessment Current Contraction Pattern: Regular - FHR Assessment Cason FHR Pattern Variability: Moderate FHR Category: 2 - Procedures Non-surgical Procedures: Other (Specify) (Alvarez bulb) - AP Antepartum Course: 04/30/17 13:20 transferred to [facility] @ 34 weeks secondary to elevated BP and proteinuria 05/02/17 13:44 care in [place]. had elevated blood pressure at home. presented to hospital in [place]. was given iv labetalol and started on magnesium sulfate for transfer to [facility]. occasional blood pressures elevated. [facility] recommended delivery due to patient meeting severe preeclampsia criteria. Oxytocin Orders Assessment - Pre-Induction/Augmentation Assessment Gestational Age: 34 week(s) and 4 day(s) ICD10 Worksheet Patient Problems: Problems Problem Status Onset Preeclampsia Acute Third trimester Acute
[2017-05-02 15:05] LABS: PH ARTERIAL CORD BLOOD 7.17 (7.10-7.37); PH VENOUS CORD BLOOD 7.21 (7.20-7.42)
[2017-05-02 15:07] LABS: CORD BLOOD PCO2 58.5 mmHg (37-60)
--- NOTE | 2017-05-02 15:13 | PREANESOB ---
Obstetric Pre-Anesthesia Info - General Info : 1 Para: 0 KINJAL: 06/06/17 Gestational Age: 34 week(s) and 4 day(s) - Info FHR Baseline (bpm): 140 - Labor Status Cervical Dilation per last OB SVE: 10 Station per last OB SVE: 0 Amniotic Fluid Color: Clear Anesthesia Allergies/Adverse Reactions: Allergy/AdvReac Type Severity Reaction Status Date / Time No Known Allergies Allergy Unverified 04/30/17 06:56 Visit Medications: Generic Name Dose Route Start Last Admin Trade Name Freq PRN Reason Stop Dose Admin Acetaminophen 1,000 mg 05/01/17 22:22 05/01/17 22:29 Tylenol PO 10/28/17 22:21 1,000 mg Q6HRS PRN Administration Pain, Mild/Fever, Can Take PO Bisacodyl 10 mg 05/01/17 09:19 Dulcolax Rectal MN 10/28/17 09:18 DAILY PRN Constipation Protocol Calcium Gluconate 1 gm 05/01/17 09:15 Calcium Gluconate IVP 10/28/17 09:14 PRN PRN Magnesium Toxicity Diphenhydramine HCl 25 - 50 mg 05/02/17 13:01 Benadryl Injection IVP 10/29/17 13:00 Q6HRS PRN Itching Docusate Sodium 100 mg 04/30/17 12:15 05/01/17 21:39 Colace PO 10/27/17 12:14 100 mg BID LEAH Administration Lactated Ringer's 1,000 mls @ 0 mls/hr 05/01/17 09:13 05/01/17 10:03 Lr IV 10/28/17 09:12 1,000 mls PRN PRN Administration SEE PROTOCOL CONDITIONS Protocol Per Protocol Magnesium Sulfate 500 mls @ 50 mls/hr 05/01/17 09:15 05/02/17 06:49 Magnesium Sulfate 20 Gm/ 500 Ml (Premix) IV 10/28/17 09:14 500 mls CONT LEAH Administration Oxytocin 20 unit/ Lactated 1,002 mls @ 150 mls/hr 05/01/17 09:13 Ringer's IV PRN PRN Post- bleeding Lactated Ringer's 500 mls @ 500 mls/hr 05/01/17 23:32 Lr IV PRN PRN Maternal Hypotension Oxytocin 30 units/ Lactated 503 mls @ 0 mls/hr 05/01/17 23:45 05/02/17 06:09 Ringer's IV 10/28/17 23:44 503 mls CONT LEAH Administration Protocol Per Protocol Fentanyl/Bupivacaine HCl 100 mls @ 0 mls/hr 05/02/17 13:30 Fentanyl/Bupivacaine/Ns 2 Mcg/Ml 0.1% (Premix EP 05/12/17 13:29 CONT LEAH Protocol As Directed Lactated Ringer's 500 mls @ 0 mls/hr 05/02/17 13:30 Lr IV 10/29/17 13:29 CONT LEAH As Directed Ibuprofen 600 mg 05/01/17 09:13 Motrin PO 10/28/17 09:12 Q6HRS PRN post , inflammation Labetalol HCl 20 mg 05/01/17 09:47 Labetalol Hcl IVP 05/04/17 09:46 ONCE PRN BPs greater than 165/105 Lactulose 20 gm 05/01/17 09:19 Cephulac PO 10/28/17 09:18 TID PRN Constipation Protocol Magnesium Hydroxide 30 ml 05/01/17 09:19 Milk Of Magnesia PO 10/28/17 09:18 DAILY PRN Constipation Protocol Magnesium Sulfate 454 gm 05/01/17 09:13 Epsom Salt TP 10/28/17 09:12 Q1H PRN perineal discomfort [place] Oil 118 ml 05/01/17 09:13 Sweet Oil MISC 10/28/17 09:12 ONCE PRN perineal massage Ondansetron HCl 4 mg 05/01/17 09:21 05/01/17 16:45 Zofran IVP 10/28/17 09:20 4 mg Q4HRS PRN Administration Nausea/Vomiting, Can't Take PO Phenylephrine HCl 100 mcg 05/02/17 13:01 Neosynephrine IVP 10/29/17 13:00 .Q2M PRN Hypotension Polyethylene Glycol 17 gm 05/01/17 09:19 Miralax PO 10/28/17 09:18 DAILY PRN Constipation, patient prefers Protocol Prenat Multivit/Prekindergarten Teacher/Iron/Folic Ac 1 each 05/01/17 08:00 05/01/17 09:58 PO 10/28/17 07:59 1 each DAILY@0800 LEAH Administration Terbutaline Sulfate 0.25 mg 05/01/17 09:13 Brethine IV 10/28/17 09:12 ONCE PRN Tachysystole Zolpidem Tartrate 5 mg 05/01/17 22:23 05/01/17 22:30 Ambien PO 10/28/17 22:22 5 mg HS PRN Administration Sleep/Insomnia Discontinued Medications Generic Name Dose Route Start Last Admin Trade Name Tracy PRN Reason Stop Dose Admin Acetaminophen 650 mg 04/29/17 20:55 04/29/17 22:40 Tylenol PO 10/26/17 20:54 650 mg Q4HRS PRN Administration Pain, Mild/Fever, Can Take PO Ammonia (Aromatic Spirit) Confirm 05/01/17 15:32 Ammonia Aromatic Administered 05/01/17 15:33 Dose 1 each IH .STK-MED ONE Bupivacaine HCl Confirm 05/02/17 10:27 Sensorcaine 0.25% Sdv Administered 05/02/17 10:28 Dose 30 ml .ROUTE .STK-MED ONE Docusate Sodium 100 mg 04/30/17 21:00 Colace PO 10/27/17 20:59 BID LEAH Docusate Sodium 100 mg 04/30/17 12:09 Colace PO 10/27/17 12:08 BID LEAH Ephedrine Sulfate Confirm 05/01/17 15:32 Ephedrine Sulfate Administered 05/01/17 15:33 Dose 50 mg .ROUTE .STK-MED ONE Fentanyl Confirm 05/02/17 10:28 Sublimaze Administered 05/02/17 10:29 Dose 100 mcg .ROUTE .STK-MED ONE Fentanyl/Bupivacaine HCl Confirm 05/02/17 10:26 Fentanyl/Bupivacaine/Ns 2 Mcg/Ml 0.1% (Premix Administered 05/02/17 10:27 Dose 100 ml EP .STK-MED ONE Magnesium Sulfate 500 mls @ 50 mls/hr 04/29/17 19:13 Magnesium Sulfate 20 Gm/ 500 Ml (Premix) IV 10/26/17 19:12 CONT LEAH As Directed Magnesium Sulfate 100 mls @ 200 mls/hr 05/01/17 09:15 05/01/17 10:03 Magnesium Sulf 4 Gm (Premix) IV 05/01/17 09:44 100 mls ONCE ONE Administration Lidocaine HCl Confirm 05/01/17 15:32 Lidocaine Hcl 1% Administered 05/01/17 15:33 Dose 300 mg .ROUTE .STK-MED ONE Misoprostol 100 mcg 05/01/17 09:30 05/01/17 18:25 Cytotec PO 05/01/17 21:31 100 mcg Q4H LEAH Administration Misoprostol Confirm 05/01/17 15:33 Cytotec Administered 05/01/17 15:34 Dose 1,000 mcg .ROUTE .STK-MED ONE [place] Oil Confirm 05/01/17 15:32 Sweet Oil Administered 05/01/17 15:33 Dose 118 ml .ROUTE .STK-MED ONE Oxytocin Confirm 05/01/17 15:33 Pitocin Administered 05/01/17 15:34 Dose 40 unit .ROUTE .STK-MED ONE Phenylephrine HCl Confirm 05/02/17 10:27 Neosynephrine Administered 05/02/17 10:28 Dose 1,000 mcg .ROUTE .STK-MED ONE Terbutaline Sulfate Confirm 05/01/17 15:33 Brethine Administered 05/01/17 15:34 Dose 1 mg .ROUTE .STK-MED ONE - Vital Signs Latest Vital Signs (Nursing): Temp Pulse Resp BP Pulse Ox 95 14 140/89 H 05/02/17 13:00 05/02/17 13:00 05/02/17 13:00 Height/Weight (Nursing): Height 165.1 cm Weight 80.286 kg Labs: 05/02/17 09:08 05/02/17 09:08 Patient ABO/Rh B POSITIVE 05/01/17 09:35 Uric Acid 5.7 mg/dL (2.5-6.8) 05/02/17 09:08 Total Bilirubin 0.4 mg/dL (0.1-1.4) 05/01/17 22:33 Conjugated Bilirubin 0.2 mg/dL (0.0-0.5) 05/01/17 22:33 Unconjugated Bilirubin 0.2 mg/dL (0.0-1.1) 05/01/17 22:33 AST 26 IU/L (14-46) 05/02/17 09:08 ALT 35 IU/L (9-52) 05/02/17 09:08 Lactate Dehydrogenase 633 IU/L (313-618) H 05/02/17 09:08 Group B Strep DNA NEGATIVE (NEGATIVE) 04/29/17 21:15
--- NOTE | 2017-05-02 15:15 | OBDEL ---
Info Type: Vaginal Presentation at Delivery: Vertex L&D Analgesia/Anesthesia Type: Epidural GBS+: No Intrapartum Medications: Generic Name Dose Route Start Last Admin Trade Name Tracy PRN Reason Stop Dose Admin Acetaminophen 1,000 mg 05/01/17 22:22 05/01/17 22:29 Tylenol PO 10/28/17 22:21 1,000 mg Q6HRS PRN Administration Pain, Mild/Fever, Can Take PO Docusate Sodium 100 mg 04/30/17 12:15 05/01/17 21:39 Colace PO 10/27/17 12:14 100 mg BID LEAH Administration Lactated Ringer's 1,000 mls @ 0 mls/hr 05/01/17 09:13 05/01/17 10:03 Lr IV 10/28/17 09:12 1,000 mls PRN PRN Administration SEE PROTOCOL CONDITIONS Protocol Per Protocol Magnesium Sulfate 500 mls @ 50 mls/hr 05/01/17 09:15 05/02/17 06:49 Magnesium Sulfate 20 Gm/ 500 Ml (Premix) IV 10/28/17 09:14 500 mls CONT LEAH Administration Oxytocin 30 units/ Lactated 503 mls @ 0 mls/hr 05/01/17 23:45 05/02/17 06:09 Ringer's IV 10/28/17 23:44 503 mls CONT LEAH Administration Protocol Per Protocol Ondansetron HCl 4 mg 05/01/17 09:21 05/01/17 16:45 Zofran IVP 10/28/17 09:20 4 mg Q4HRS PRN Administration Nausea/Vomiting, Can't Take PO Prenat Multivit/[place]/Iron/Folic Ac 1 each 05/01/17 08:00 05/01/17 09:58 PO 10/28/17 07:59 1 each DAILY@0800 LEAH Administration Zolpidem Tartrate 5 mg 05/01/17 22:23 05/01/17 22:30 Ambien PO 10/28/17 22:22 5 mg HS PRN Administration Sleep/Insomnia Discontinued Medications Generic Name Dose Route Start Last Admin Trade Name Tracy PRN Reason Stop Dose Admin Acetaminophen 650 mg 04/29/17 20:55 04/29/17 22:40 Tylenol PO 10/26/17 20:54 650 mg Q4HRS PRN Administration Pain, Mild/Fever, Can Take PO Magnesium Sulfate 100 mls @ 200 mls/hr 05/01/17 09:15 05/01/17 10:03 Magnesium Sulf 4 Gm (Premix) IV 05/01/17 09:44 100 mls ONCE ONE Administration Misoprostol 100 mcg 05/01/17 09:30 05/01/17 18:25 Cytotec PO 05/01/17 21:31 100 mcg Q4H LEAH Administration - Care Provider Staple Side Laster/SALES HUNTER: Jenny Miranda - Hospital Course Intrapartum: 04/30/17 13:13 Pt is feeling well today. She reports a transient low level KATHLEEN which was improved but now resolved with eating. She declines Tylenol now. She denies scotomata, RUQ or abdominal pain, has a good appetite. She feels good FM and denies contractions. 05/01/17 09:36 Pt seen and examined. She states a mild KATHLEEN since she has been here. Declines Tylenol at this time. She denies any visual changes, or any RUQ/epigastric pain. States good FM. No LOF or VB. Denies any ctx's or cramping. Dora breakfast. Had BM-small yesterday. 05/01/17 13:45 Pt feels much better after having a popsicle, now on mag. Denies any HAs, visual changes or RUQ pain. Good FM. Starting to feel achy with Cytotec. 05/01/17 16:35 Pt is sleeping at this time. 05/01/17 22:17 Pt feels crampy, trying to have a BM. Denies any PIH symptoms. Good FM. Denies any LOF or VB. 05/02/17 09:38 patient more uncomfortable. was able to rest overnight. coughed and the alvarez bulb came out. started leaking clear fluid. large amount of clear fluid came out with exam. blood pressures are elevated but stable. status is reassuring. requesting epidural. pitocin is at 8 mu 05/02/17 12:42 patient comfortable with epidural. occasional variables and earlies on monitoring. sve 9/80/0. will continue to monitor closely. 05/02/17 13:41 patient feeling pressure. had deceleration yo 70's/ SVE patient complete - 0 station. began pushing. having some variable decels. overall status is reassuring. Indications for Delivery: Preeclampsia Severe Vaginal Delivery - Delivery Provider Delivery Physician/CNM: Yari Vincent - Labor and Delivery Onset of Contractions Date: 05/02/17 Onset of Contractions Type: Induced Rupture of Membranes Date: 05/02/17 Rupture of Membranes Time: 09:32 Rupture of Membranes Type: Spontaneous Amniotic Fluid Color: Clear Dilation Complete Date: 05/02/17 Dilation Complete Time: 13:13 Placenta Delivery Date: 05/02/17 Placenta Delivery Time: 14:34 Non-surgical Procedures: Other (Specify) (Alvarez bulb) Laceration: 2nd Degree Vaginal Sponge Count Correct: Yes Vaginal Needle Count Correct: Yes Vaginal Sweep Performed: Yes EBL: 400 Delivery Events: Nuchal Cord Delivery Comment: hymenal band was cut as patient was to facilitate delivery secondary to fhts in the 60s. large gush of port wine blood tinged fluid and large clot with delivery of baby Cord Gases: Cord Gases Cord Blood PCO2 58.5 mmHg (37-60) 05/02/17 14:35 Cord Base Excess -9.0 mEq/L (-13.6--3.2) 05/02/17 14:35 Cord ABG pH 7.17 (7.10-7.37) 05/02/17 14:35 Cord VBG pH 7.21 (7.20-7.42) 05/02/17 14:35 - Medications Labor Augmentation/Induction Methods Used: Pitocin, Misoprostol, Alvarez Bulb Labor Augmentation/Induction Indication: Other (Specify) (severe preeclampsia on magnesium) Operative Report - Delivery Cord Gases: Cord Gases Cord Blood PCO2 58.5 mmHg (37-60) 05/02/17 14:35 Cord Base Excess -9.0 mEq/L (-13.6--3.2) 05/02/17 14:35 Cord ABG pH 7.17 (7.10-7.37) 05/02/17 14:35 Cord VBG pH 7.21 (7.20-7.42) 05/02/17 14:35 [place] Data Cason Delivery Date: 05/02/17 Delivery Time: 14:30 KINJAL: 06/06/17 Gestational Age: 35 week(s) and 0 day(s) Sex of Infant: Female Score (1 Min): 5 Score (5 Min): 7 Score (10 Min): 8 ICD10 Worksheet Patient Problems: Problems Problem Status Onset Preeclampsia Acute Third trimester Acute
[2017-05-02] MEDS: IBUPROFEN 600 MG TAB PO PRN ×2 (15:17→21:37)
[2017-05-02] MEDS ORDERED: HYDROCORTISONE 0.5% CREAM TP PRN (16:38)
[2017-05-02] MEDS ORDERED: SIMETHICONE 80 MG TAB CHEW PO PRN (16:38)
[2017-05-02] MEDS ORDERED: HYDROCODONE/APAP 5/325 TAB PO PRN (16:38)
[2017-05-02] MEDS ORDERED: ACETAMINOPHEN 325 MG TAB PO PRN (16:38)
[2017-05-02] MEDS ORDERED: CALCIUM GLUC 10% 1 GM/10 ML VIAL IVP PRN (16:41)
[2017-05-02] MEDS: MISOPROSTOL 100 MCG TAB PO SCH (20:57)
[2017-05-02] MEDS: DOCUSATE SODIUM 100 MG CAP PO SCH ×2 (21:38→21:39)
[2017-05-02] MEDS: PRENATAL VIT 1 EACH TAB PO SCH (21:39)
[2017-05-03] MEDS: IBUPROFEN 600 MG TAB PO PRN ×3 (05:45→19:31)
[2017-05-03 06:02] LABS: % IMMATURE GRANULYOCYTES 0.4 % (0.0-1.1); ABSOLUTE IMMATURE GRANULOCYTES 0.04 10^3/uL (0.00-0.10); ADD DIFF? NO; ADD MORPH? NO; ADD SCAN? NO; ATYPICAL LYMPHOCYTE FLAG 0 (0-99); FRAGMENT RBC FLAG 0 (0-99); HEMATOCRIT 21.6 % (38.0-47.0); HEMOGLOBIN 7.2 g/dL (12.6-16.3); LEFT SHIFT FLG 0 (0-99); LIPEMIA HEMOLYSIS FLAG 80 (0-99); MEAN CELL HEMOGLOBIN 30.1 pg (27.9-34.1); MEAN CELL HEMOGLOBIN CONCENTR. 33.3 g/dL (32.4-36.7); MEAN CELL VOLUME 90.4 fL (81.5-99.8); MEAN PLATELET VOLUME 9.5 fL (8.7-11.7); PLATELET CLUMPS FLAG 0 (0-99); PLATELET COUNT 136 10^3/uL (150-400); RED BLOOD CELL COUNT 2.39 10^6/uL (4.18-5.33); RED CELL DISTRIBUTION WIDTH 12.3 % (11.5-15.2)
[2017-05-03 06:41] LABS: ALANINE AMINOTRANSFERASE 32 IU/L (9-52); ASPARTATE AMINOTRANSFERASE 24 IU/L (14-46); CREATININE 0.8 mg/dL (0.6-1.0); GLOMERULAR FILTRATION RATE > 60; LACTATE DEHYDROGENASE 544 IU/L (313-618)
--- NOTE | 2017-05-03 07:46 | OBPP ---
Progress Note Assessment/Plan: Assessment: PP day #1 s/p normal spontaneous vaginal delivery Severe PreEclampsia Plan: Continue magnesium Magnesium off at 1400 Okay for clear liquids while on Magnesium Regular diet this afternoon Continue routine care 05/03/17 07:40 05/03/17 07:48 Subjective/ Course: 05/03/17 07:46 Patient doing well denies headache no visual changes no epigastric pain. Min pain and normal lochia Objective: 05/03/17 05:40 05/03/17 05:40 Patient ABO/Rh B POSITIVE 05/01/17 09:35 Uric Acid 5.0 mg/dL (2.5-6.8) 05/03/17 05:40 Total Bilirubin 0.4 mg/dL (0.1-1.4) 05/01/17 22:33 Conjugated Bilirubin 0.2 mg/dL (0.0-0.5) 05/01/17 22:33 Unconjugated Bilirubin 0.2 mg/dL (0.0-1.1) 05/01/17 22:33 AST 24 IU/L (14-46) 05/03/17 05:40 ALT 32 IU/L (9-52) 05/03/17 05:40 Lactate Dehydrogenase 544 IU/L (313-618) 05/03/17 05:40 Group B Strep DNA NEGATIVE (NEGATIVE) 04/29/17 21:15 Temp Pulse Resp BP Pulse Ox 95 14 140/89 H 05/02/17 13:00 05/02/17 13:00 05/02/17 13:00 Uterine Position/Fundal Height: Umbilicus -2 Uterine Tone: Firm Physical Exam - Physical Exam Respiratory: lungs clear, normal breath sounds Cardiac/Chest: normal peripheral pulses, regular rate, rhythm Abdomen: normal bowel sounds Extremities: normal range of motion, non-tender Back: Normal inspection Skin: normal color
[2017-05-03 08:09] LABS: MAGNESIUM > 20.0 mg/dL (1.6-2.3)
[2017-05-03] MEDS: DOCUSATE SODIUM 100 MG CAP PO SCH ×2 (13:24→19:31)
[2017-05-03 18:46] LABS: HEMATOCRIT 28.1 % (38.0-47.0); HEMOGLOBIN 9.5 g/dL (12.6-16.3)
[2017-05-03] MEDS: FERROUS SULFATE 325 MG TAB PO SCH (20:15)
[2017-05-04] MEDS: IBUPROFEN 600 MG TAB PO PRN ×3 (02:13→21:37)
[2017-05-04] MEDS: PRENATAL VIT 1 EACH TAB PO SCH ×2 (06:09→09:53)
--- NOTE | 2017-05-04 07:40 | OBPP ---
Progress Note Assessment/Plan: Assessment: PP day #2 s/p normal spontaneous vaginal delivery Severe PreEclampsia Plan: Blood pressures good no need for hypertensive medication Regular diet Continue routine care 05/03/17 07:40 05/03/17 07:48 05/04/17 07:38 Magnesium discontinued yesterday Tolerating diet and ambulating well 05/04/17 07:47 Subjective/ Course: 05/03/17 07:46 Patient doing well denies headache no visual changes no epigastric pain. Min pain and normal lochia 05/04/17 07:39 Doing well tolerating diet, ambulating no PIH symptoms Objective: 05/03/17 18:30 05/03/17 05:40 Patient ABO/Rh B POSITIVE 05/01/17 09:35 Uric Acid 5.0 mg/dL (2.5-6.8) 05/03/17 05:40 Total Bilirubin 0.4 mg/dL (0.1-1.4) 05/01/17 22:33 Conjugated Bilirubin 0.2 mg/dL (0.0-0.5) 05/01/17 22:33 Unconjugated Bilirubin 0.2 mg/dL (0.0-1.1) 05/01/17 22:33 AST 24 IU/L (14-46) 05/03/17 05:40 ALT 32 IU/L (9-52) 05/03/17 05:40 Lactate Dehydrogenase 544 IU/L (313-618) 05/03/17 05:40 Group B Strep DNA NEGATIVE (NEGATIVE) 04/29/17 21:15 Temp Pulse Resp BP Pulse Ox 36.9 C 73 16 116/76 96 05/03/17 22:30 05/04/17 03:22 05/04/17 03:22 05/04/17 03:22 05/03/17 22:30 Uterine Position/Fundal Height: Umbilicus -2 Uterine Tone: Firm Physical Exam - Physical Exam Respiratory: chest non-tender, lungs clear Cardiac/Chest: normal peripheral pulses, regular rate, rhythm, edema Abdomen: normal bowel sounds Extremities: normal range of motion, non-tender Skin: normal color, warm/dry Neuro/Psych: no motor/sensory deficits, alert, normal mood/affect, oriented x 3
[2017-05-04] MEDS: FERROUS SULFATE 325 MG TAB PO SCH ×2 (09:53→21:37)
[2017-05-04] MEDS: DOCUSATE SODIUM 100 MG CAP PO SCH ×2 (09:53→21:37)
[2017-05-05 07:54] VITALS: BP 136/94; PULSE 82; RESP 14; TEMP 97.4; O2SAT 97
--- NOTE | 2017-05-05 07:58 | OBPP ---
Progress Note Assessment/Plan: Assessment:nipples intact well denies pain voiding without difficulty ff@u scant rubra lochia denies pih symptoms pericare with each void perineum approximated Plan:discharge to home or possibly border. Discussed ss pih, pain management, depression, ss infection, bleeding patterns, pelvic rest, exercise, fu care 3 days, 4 week mood check, 6 week pp check, rest, ,contraception. Verbalized understanding of all of the above 05/05/17 07:55 Subjective/ Course: 05/03/17 07:46 Patient doing well denies headache no visual changes no epigastric pain. Min pain and normal lochia 05/04/17 07:39 Doing well tolerating diet, ambulating no PIH symptoms 05/05/17 07:54 Doing well denies difficulties. Pain well managed. Minimal bleeding. Denies PIH symptoms Objective: 05/03/17 18:30 05/03/17 05:40 Patient ABO/Rh B POSITIVE 05/01/17 09:35 Uric Acid 5.0 mg/dL (2.5-6.8) 05/03/17 05:40 Total Bilirubin 0.4 mg/dL (0.1-1.4) 05/01/17 22:33 Conjugated Bilirubin 0.2 mg/dL (0.0-0.5) 05/01/17 22:33 Unconjugated Bilirubin 0.2 mg/dL (0.0-1.1) 05/01/17 22:33 AST 24 IU/L (14-46) 05/03/17 05:40 ALT 32 IU/L (9-52) 05/03/17 05:40 Lactate Dehydrogenase 544 IU/L (313-618) 05/03/17 05:40 Group B Strep DNA NEGATIVE (NEGATIVE) 04/29/17 21:15 Temp Pulse Resp BP Pulse Ox 36.6 C 86 16 121/86 H 96 05/04/17 21:34 05/04/17 21:34 05/04/17 21:34 05/04/17 21:34 05/04/17 21:34 Uterine Position/Fundal Height: At Umbilicus Uterine Tone: Firm Physical Exam - Physical Exam General Appearance: WD/WN, alert, no apparent distress Abdomen: other (ff@u/ scant rubra lochia/ perineum approximated) Extremities: normal range of motion, Colten's sign (negative bilaterally) DTR- Lower Extremities: Knee (R): 1+, Knee (L): 1+ (no clonus) Skin: normal color, warm/dry Neuro/Psych: no motor/sensory deficits, alert, normal mood/affect, oriented x 3
--- NOTE | 2017-05-05 08:04 | OBGCSDC ---
General Delivery Information - General Info : 1 Para: 1 Abortions: 0 Type: Vaginal L&D Analgesia/Anesthesia Type: Epidural, Local Admission Date: 04/29/17 Labs: Patient ABO/Rh B POSITIVE 05/01/17 09:35 Hct 28.1 % (38.0-47.0) L 05/03/17 18:30 Group B Strep DNA NEGATIVE (NEGATIVE) 04/29/17 21:15 - Hospital Course Antepartum: 04/30/17 13:20 transferred to [facility] @ 34 weeks secondary to elevated BP and proteinuria 05/02/17 13:44 care in [place]. had elevated blood pressure at home. presented to hospital in [place]. was given iv labetalol and started on magnesium sulfate for [facility]. occasional blood pressures elevated. [facility] recommended delivery due to patient meeting severe preeclampsia criteria. Intrapartum: 04/30/17 13:13 Pt is feeling well today. She reports a transient low level KATHLEEN which was improved but now resolved with eating. She declines Tylenol now. She denies scotomata, RUQ or abdominal pain, has a good appetite. She feels good FM and denies contractions. 05/01/17 09:36 Pt seen and examined. She states a mild KATHLEEN since she has been here. Declines Tylenol at this time. She denies any visual changes, or any RUQ/epigastric pain. States good FM. No LOF or VB. Denies any ctx's or cramping. Dora breakfast. Had BM-small yesterday. 05/01/17 13:45 Pt feels much better after having a popsicle, now on mag. Denies any HAs, visual changes or RUQ pain. Good FM. Starting to feel achy with Cytotec. 05/01/17 16:35 Pt is sleeping at this time. 05/01/17 22:17 Pt feels crampy, trying to have a BM. Denies any PIH symptoms. Good FM. Denies any LOF or VB. 05/02/17 09:38 patient more uncomfortable. was able to rest overnight. coughed and the alvarez bulb came out. started leaking clear fluid. large amount of clear fluid came out with exam. blood pressures are elevated but stable. status is reassuring. requesting epidural. pitocin is at 8 mu 05/02/17 12:42 patient comfortable with epidural. occasional variables and earlies on monitoring. sve /0. will continue to monitor closely. 05/02/17 13:41 patient feeling pressure. had deceleration yo 70's/ SVE patient complete - 0 station. began pushing. having some variable decels. overall status is reassuring. : 05/03/17 07:46 Patient doing well denies headache no visual changes no epigastric pain. Min pain and normal lochia 05/04/17 07:39 Doing well tolerating diet, ambulating no PIH symptoms 05/05/17 07:54 Doing well denies difficulties. Pain well managed. Minimal bleeding. Denies PIH symptoms Vaginal - Delivery Provider Delivery Physician/CNM: Yari Vincent - Diagnosis Labor: Induced Rupture of Membranes Type: Spontaneous Amniotic Fluid Color: Clear Laceration: 2nd Degree Delivery Events: Nuchal Cord - Procedures Non-surgical Procedures: Other (Specify) (Alvarez bulb) - Delivery Non-surgical Procedures: Other (Specify) (Alvarez bulb) EBL: 400 [place] [facility] [place] Delivery Date: 05/02/17 Delivery Time: 14:30 KINJAL: 06/06/17 Gestational Age: 35 week(s) and 3 day(s) Sex of : Female [place] Weight (gm): 2906 g Score (1 Min): 5 Score (5 Min): 7 Score (10 Min): 8 Discharge Information - Discharge Information Prescriptions: Ibuprofen [Motrin (*)] 600 mg PO Q6HRS PRN #30 tab PRN Reason: post , inflammation Ferrous Sulfate [Ferrous Sulf 325 MG (*)] 325 mg PO BID #90 tab Condition: Good
[2017-05-05] MEDS: FERROUS SULFATE 325 MG TAB PO SCH (08:21)
[2017-05-05] MEDS: PRENATAL VIT 1 EACH TAB PO SCH (08:21)
[2017-05-05] MEDS: DOCUSATE SODIUM 100 MG CAP PO SCH (08:21)
[2017-05-05] MEDS: IBUPROFEN 600 MG TAB PO PRN (08:21)
== END 2017-05-05 11:45 | disposition home or self-care (01) | DRG 775 ==
LOC: FLD 18:50 → OBSVTOIN 20:56 → FOB 05-03 15:54
PROVIDERS: ADMIT Obstetrics & Gynecology Gynecology; ATTEND Obstetrics & Gynecology Gynecology
PROC: 3E03329 Introduction of Other Anti-infective into Peripheral Vein, Percutaneous Approach (ICD-10-PCS; principal; 2017-05-02)
PROC: 10E0XZZ Delivery of Products of Conception, External Approach (ICD-10-PCS; principal; 2017-05-02)
PROC: 0KQM0ZZ Repair Perineum Muscle, Open Approach (ICD-10-PCS; principal; 2017-05-02)
DX: O14.14 Severe pre-eclampsia complicating childbirth (principal); O70.1 Second degree perineal laceration during delivery; O69.89X0 Labor and delivery complicated by other cord complications, not applicable or unspecified; Z3A.34 34 weeks gestation of pregnancy; Z37.0 Single live birth
CPT/HCPCS: G0463; J0610; J2370; J2405; J2590; J3010; J3105; J3475